=== PATIENT | male | born 1960 ===

== ENCOUNTER 2018-06-06 09:59 | Emergency (ER) | payer OTHER ==
--- NOTE | 2018-06-06 10:07 | EDPHY ---
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 He smells of alcohol. He admits to drinking. The staff the restaurant called because they thought maybe he had fainted. No seizure-like activity. He initially seen confused to paramedics but gradually improved. They worried about him being postictal. No signs of trauma. No incontinence. No oral trauma. No signs of head injury. No seizure history. Glucose is normal. Severity: Moderate Modifying factors: None REVIEW OF SYSTEMS: Constitutional: denies: chills, fever, recent illness, recent injury EENTM: denies: blurred vision, double vision, nose congestion Respiratory: denies: cough, shortness of breath Cardiac: denies: chest pain, irregular heart rate, lightheadedness, palpitations Gastrointestinal/Abdominal: denies: abdominal pain, diarrhea, nausea, vomiting, blood streaked stools Genitourinary: denies: dysuria, frequency, hematuria, pain Musculoskeletal: denies: joint pain, muscle pain Skin: denies: lesions, rash, jaundice, bruising Neurological: denies: headache, numbness, paresthesia, tingling, dizziness, weakness Hematologic/Lymphatic: denies: blood clots, easy bleeding, easy bruising Immunologic/allergic: denies: HIV/AIDS, transplant 10 systems reviewed and negative except as noted EXAM: GENERAL: Answering questions appropriately in Portuguese and in no acute distress. HEAD: Atraumatic, normocephalic. EYES: Pupils equal round and reactive to light, extraocular movements intact, sclera anicteric, conjunctiva are normal. ENT: TMs normal, nares patent, oropharynx clear without exudates. Moist mucous membranes. NECK: Normal range of motion, supple without lymphadenopathy or JVD. LUNGS: Breath sounds clear to auscultation bilaterally and equal. No wheezes rales or rhonchi. HEART: Regular rate and rhythm without murmurs, rubs or gallops. ABDOMEN: Soft, nontender, normoactive bowel sounds. No guarding, no rebound. No masses appreciated. BACK: No CVA tenderness, no spinal tenderness, step-offs or deformities EXTREMITIES: Normal range of motion, no pitting or edema. No clubbing or cyanosis. NEUROLOGICAL: Cranial nerves II through XII grossly intact. Normal speech, normal gait. 5/5 strength, normal movement in all extremities, normal sensation , normal reflexes PSYCH: Normal mood, normal affect. SKIN: Warm, dry, normal turgor, no visible rashes or lesions. 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) - Medical/Surgical History Hx Asthma: No Hx Chronic Respiratory Disease: No Hx Diabetes: No Hx Cardiac Disease: No Hx Renal Disease: No Hx Cirrhosis: No Hx Alcoholism: No Hx HIV/AIDS: No - Family History Significant Family History: No pertinent family hx - Social History Alcohol Use: Occasionally Drug Use: None Constitutional: Initial Vital Signs Temperature (C) 36.5 C 06/06/18 10:11 Heart Rate 87 06/06/18 10:11 Respiratory Rate 18 06/06/18 10:11 Blood Pressure 115/87 H 06/06/18 10:11 O2 Sat (%) 94 06/06/18 10:11 O2 Delivery Mode Room Air Allergies/Adverse Reactions: No Known Allergies Allergy (Verified 06/06/18 10:13) Home Medications: Medication Instructions Recorded Acetaminophen/ASA/Caffeine 3 each PO DAILY PRN 07/05/12 [Excedrin Tablet (OTC)] Naproxen Sodium [Aleve 220 mg 220 mg PO DAILY PRN 07/05/12 (OTC)] Medical Decision Making ED Course/Re-evaluation: Even with poor effort the patient's alcohol is 225 on Breathalyzer. I doubt that he had a seizure when he is intoxicated. No signs of seizure clinically. No signs of trauma. We will observe for sobriety. 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 He was drinking on the bus on the way to work today. 2:30 p.m. the patient has had no further episodes or complaints. Will discharge him at this time. Differential Diagnosis: Partial list of the Differential diagnosis considered include but were not limited to; alcohol intoxication and although unlikely based on the history and physical exam, I also considered seizure, electrolyte abnormality, syncope, arrhythmia. Departure - Departure Disposition: Home, Routine, Self-Care Clinical Impression: Alcohol intoxication Qualifiers: Complication of substance-induced condition: uncomplicated Qualified Code(s): F10.920 - Alcohol use, unspecified with intoxication, uncomplicated Condition: Fair Instructions: Alcohol Intoxication (ED) Referrals: Patient,NotPresent [Unknown] - As per Instructions Print Language: Portuguese
[2018-06-06 13:03] VITALS: BP 108/71
== END 2018-06-06 13:37 | disposition home or self-care (01) ==
LOC: EDUNIT#
DX: F10.920 Alcohol use, unspecified with intoxication, uncomplicated (principal); Y90.7 Blood alcohol level of 200-239 mg/100 ml
CPT/HCPCS: G0480